=== PATIENT | male | born 1970 | race Caucasian/White ===

== ENCOUNTER 2021-03-25 11:35 | Outpatient (REF) | payer MEDICAID, SELFPAY | END 2021-03-25 11:36 | disposition home or self-care (01) | LOC: HO.HMGCLDS 11:35 | PROVIDERS: Visit Provider Internal Medicine | DX: Z20.822 Contact with and (suspected) exposure to COVID-19 (principal) | CPT/HCPCS: C9803; U0003; U0005 ==

== ENCOUNTER 2021-04-05 10:22 | Outpatient (REF) | payer MEDICAID, SELFPAY | END 2021-04-05 10:23 | disposition home or self-care (01) | LOC: HO.HMGCLDS 10:22 | PROVIDERS: Visit Provider Internal Medicine | DX: Z20.822 Contact with and (suspected) exposure to COVID-19 (principal) | CPT/HCPCS: C9803; U0003; U0005 ==

== ENCOUNTER 2022-07-07 10:13 | Emergency (ER) | payer OTHER, SELFPAY ==
--- NOTE | ~2022-07-07 | US_ITS ---
EXAMINATION: US SCROTUM CLINICAL INFORMATION: Right testicular pain. COMPARISON: None available. TECHNIQUE: A sonogram of the scrotum was performed assessing arriaga-scale appearance and color Doppler flow. Spectral Doppler analysis of the arterial and venous flow were performed in the testes bilaterally. FINDINGS: RIGHT: Right testicle measures 4.6 x 2.3 x 3.2 cm, volume 17.9 mL. There is a region of heterogeneous echotexture about the medial aspect of the right testicle. No hypervascularity is associated with this. 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 Recommend comparison with prior studies if they haven't been performed at another institution. If they have not been performed then follow-up scrotal ultrasound to ensure stability is recommended in 6 months. Calcification is present. Spectral Doppler analysis of the arterial and venous flow is normal in the right testis. Right epididymal head contains numerous cysts with the largest measuring 2.1 x 2.1 x 1.9 cm in size.. There is a small right hydrocele as well as a varicocele present. Right epididymal Doppler flow is normal. LEFT: Left testicle measures 4.4 x 2.7 x 2.8 cm, volume 17.2 mL. No focal testicular parenchymal lesions are visualized. Spectral Doppler analysis of the arterial and venous flow is normal in the left testis. Calcification present. Left epididymal head containing loops multiple cysts.. There is a minimal hydrocele present with a varicocele. Left epididymal Doppler flow is normal. In region of patient's right groin pain there is a lymph node with fatty hilum and no evidence of cortical thickening measuring 3.1 x 0.8 x 1.1 cm in size. US/US scrotum doppler IMPRESSION: Region of discomfort within the right groin corresponds to a prominent lymph node. Right testicular region of heterogeneous echotexture without increased vascular flow with patient giving history of previous right testicular rupture. Correlation with outside films is recommended. If no outside studies are available for comparison then a 6 month follow-up ultrasound is recommended.
[2022-07-07 10:29] VITALS: BP 129/58; PULSE 55; RESP 18; TEMP 36.4; O2SAT 99; BMI 26.6
[2022-07-07 11:09] LABS: Hematocrit 38.5 % (42.0-52.0); Hemoglobin 13.1 g/dl (14.0-18.0); Mean Corpuscular Hemoglobin 28.9 pg (27.0-33.0); Mean Platelet Volume 10.1 fL (9.4-12.4); Platelet Count 247 X10*3/uL (160-400); Red Blood Count 4.53 X10*6/uL (4.60-5.80); Red Cell Distribution Width 12.8 % (11.0-16.0); White Blood Count 7.5 X10*3/uL (4.8-10.8)
[2022-07-07 11:27] LABS: Anion Gap 12 (12-20); Blood Urea Nitrogen 9 mg/dL (9-16); Calcium 9.4 mg/dL (8.4-10.2); Carbon Dioxide 30 mmol/L (22-29); Chloride 105 mmol/L (96-108); Creatinine Clr Calc Pharmacy 105.5; Estimated Glomerular Filt Rate > 60; Glucose Random 111 mg/dL (60-115); Potassium 4.8 mmol/L (3.3-5.1); Sodium 142 mmol/L (135-145)
--- NOTE | 2022-07-07 16:13 | ED_ITS ---
HPI - Male Genitourinary General Chief complaint: Urogenital-Male Stated complaint: testicle issues Time Seen by Provider: 07/07/22 16:08 History of Present Illness HPI Narrative: Patient complains of right testicle swelling which has been going on for several weeks and has happen before in recent years, he did injure the testicle many years ago as a child The acute complaint today is he was exercising and felt a sharp pain in the right groin area and is concerned he may have developed a hernia and wants to be checked he denies any dysuria no other abdominal pain, he is not having any nausea or vomiting, no burning with urination no discharge, no fevers Related Data Allergies Allergy/AdvReac Type Severity Reaction Status Date / Time Unable to Assess Allergy Unverified 07/07/22 11:35 [facility] Past Medical History Source: nursing notes reviewed Social History Social History Advance Directives: No Advance Directives Information Provided: Yes Physical Exam Vital Signs: Vital Signs: Last Vital Signs Temp 97.8 F 07/07/22 16:52 Pulse 56 07/07/22 16:52 Resp 18 07/07/22 16:52 BP 133/81 07/07/22 16:52 Pulse Ox 98 07/07/22 16:52 O2 Del Method Room Air 07/07/22 16:52 BMI result Body Mass Index 26.6 General appearance is no acute distress The eyes no redness or discharge The pharynx is clear no redness swelling or exudates Neck is supple Respiratory no distress Abdomen soft nontender The groin exam there were no palpable masses, no hernia palpated, there was some right groin tenderness no rebound no guarding no other abdominal tenderness Genital exam there was of mobile small lump on the right testicle, otherwise no other abnormality palpated, genital exam otherwise normal no discharges no lesions Extremities full range of motion x4 Skin no rashes Course Course Course Narrative: patient who has a history of intermittent right testicular pain and swelling, who was exercising today and felt a sharp right groin pain that is been hurting all day comes in to be checked On exam I could not palpate any hernia Urinalysis was normal CBC was sent and his hematocrits 38.5 hemoglobin 13.1, no prior available, patient is not complaining of any acute weakness or dizziness, he does have ulcerative colitis and says he has not had any unusual bleeding For this he is advised to follow closely with his doctor for repeat blood count to see how it trending and he has said he will call his doctor's office and get this done within a week chemistry was normal Ultrasound showed no evidence of torsion, good blood flow in both testes, there was 1 right groin lymph node, there were multiple small cysts, hydrocele and varicocele, no other acute findings Patient did not want any pain medication and is referred to urologist for follow-up for his findings on ultrasound along with his right testicular discomfort, and with primary doctor for evaluation of his anemia Today's acute right groin pain may be the result of straining it during exercise but not certain Medical Decision Making Lab Data MDM Lab Attestation statement: I reviewed the patient's lab results. 07/07/22 11:00 07/07/22 11:00 Labs: Lab Results 07/07/22 07/07/22 07/07/22 Range/Units 11:00 11:00 16:18 WBC 7.5 (4.8-10.8) X10*3/uL RBC 4.53 L (4.60-5.80) X10*6/uL Hgb 13.1 L (14.0-18.0) g/dl Hct 38.5 L (42.0-52.0) % MCV 85.0 (80.0-98.0) fL MCH 28.9 (27.0-33.0) pg MCHC 34.0 (31.0-36.0) g/dl RDW 12.8 (11.0-16.0) % Plt Count 247 (160-400) X10*3/uL MPV 10.1 (9.4-12.4) fL Absolute Nucleated RBC 0.000 (0.0-0.012) X10*3/uL Nucleated RBC % (auto) 0.0 (0.0-0.2) /100WBC Sodium 142 (135-145) mmol/L Potassium 4.8 (3.3-5.1) mmol/L Chloride 105 (96-108) mmol/L Carbon Dioxide 30 H (22-29) mmol/L Anion Gap 12 (12-20) BUN 9 (9-16) mg/dL Creatinine 0.81 (0.5-1.4) mg/dL Estim Creat Clear Calc 105.5 Estimated GFR > 60 Random Glucose 111 (60-115) mg/dL Calcium 9.4 (8.4-10.2) mg/dL Urine Color Yellow Urine Appearance Clear Urine pH 7.0 (5.0-9.0) Ur Specific [place] 1.010 (1.005-1.025) Urine Protein Negative (Neg-Trace) mg/dL Urine Glucose (UA) Negative (Negative) mg/dL Urine Ketones Negative (Negative) mg/dL Urine Blood Negative (Negative) Urine Nitrite Negative (Negative) Ur Leukocyte Esterase Negative (Negative) Discharge Plan Discharge Clinical Impression: Right testicular pain, Varicocele, Hydrocele, Anemia Patient Disposition: Home, Self-Care Additional Instructions: ultrasound did not show any dangerous finding today, there was evidence of hydrocele, varicocele They recommend follow-up with urologist to compare today's finding to previous and you may need a repeat ultrasound in 6 months I did not feel any hernia on exam, no worrisome findings on exam There was a lymph node in the groin and this may need to be rechecked as well Your blood count was a little low and this could be from ulcerative colitis, but needs to be recheck so follow with primary doctor to make sure it is not dropping any further Return to the ER any time any worse condition or any concerns Referrals: Ramses Brenner MD [Physician] - ( right testicular pain and swelling, h ydrocele) Stand Alone Forms: Work/School Release Discharge Date/Time: 07/07/22 17:45
[2022-07-07 16:32] LABS: Appearance Urine Clear; Color Urine Yellow; Glucose Urine UA Negative (Negative); Leukocyte Esterase Urine Negative (Negative); Nitrite Urine Negative (Negative); Urine Blood Negative (Negative); Urine Ketones Negative (Negative); Urine Protein Negative (Neg-Trace)
[2022-07-07 16:52] VITALS: BP 133/81; PULSE 56; RESP 18; TEMP 36.6; O2SAT 98
--- NOTE | 2022-07-07 17:50 | PC.NURSE ---
PT WAS ASSESSED FOLLOWING LAB AND IMAGING RESULTED/ PT WAS THEN DISCHARGED
== END 2022-07-07 17:45 | disposition home or self-care (01) ==
PROVIDERS: Emergency Provider Student in an Organized Health Care Education/Training Program; PCP Physician Assistant
DX: N50.811 Right testicular pain (principal); I86.1 Scrotal varices; N43.3 Hydrocele, unspecified; D64.9 Anemia, unspecified; R10.2 Pelvic and perineal pain; Z79.899 Other long term (current) drug therapy
CPT/HCPCS: 36415; 76870; 80048; 81003; 85027; 93975; 99282; 99284

== ENCOUNTER 2024-05-13 09:40 | Emergency (ER) | payer SELFPAY ==
--- NOTE | ~2024-05-13 | XR_ITS ---
EXAMINATION: XR HAND 3 OR MORE VIEWS LEFT HISTORY: puncture injury COMPARISON: There are no prior studies available for comparison. FINDINGS: Three views of the left hand are submitted. Osseous mineralization is normal. There is no fracture or dislocation. 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 The remaining joint spaces are maintained. There is a small amount of mottled soft tissue gas between the 2nd and 3rd metacarpal heads. There is no radiopaque foreign body. XR/XR hand LT min 3V IMPRESSION: Small amount of mottled soft tissue gas between the 2nd and 3rd metacarpal heads. No evidence of fracture or radiopaque foreign body. Electronically signed by: Christ Camilo MD 05/13/2024 10:43 AM DAT [facility]
[2024-05-13 10:20] VITALS: BP 146/79; PULSE 47; RESP 20; TEMP 36.6; O2SAT 97; BMI 25.9
--- NOTE | 2024-05-13 10:20 | ED.GENADULT ---
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 Patient states that he was at work when he accidentally drilled into his left palm with a brand new 3/8ths sized drill bit. Patient denies any dizziness, lightheadedness, abdominal pain, nausea, vomiting, fever, chills, blurry vision, double vision, loss of vision, chest pain, difficulty breathing, shortness of breath, back pain, night sweats, pain with urination, increased urinary frequency, increased urinary urgency, blood in his urine or stool, syncope or a near syncopal episode, bowel incontinence, bladder incontinence, or any other complaints at this time. Patient states that he does not know when his last tetanus shot was. Location: left and upper extremity Relieving factors: none Exacerbating factors: none Associated symptoms: denies other symptoms Treatments prior to arrival: none Related Data Previous Rx's ?Medication ?Instructions ?Recorded amoxicillin 875 mg-potassium 1 tab PO BID 7 days #14 tabs 05/13/24 clavulanate 125 mg tablet doxycycline hyclate 100 mg tablet 100 mg PO BID 7 days #14 tabs 05/13/24 Allergies Allergy/AdvReac Type Severity Reaction Status Date / Time No Known Allergies Allergy Verified 05/13/24 10:23 Review of Systems Constitutional: Constitutional: Reports no additional constitutional complaints, Denies chills, Denies fever(s) and Denies night sweats Eyes: Eyes: Reports no additional eye complaints, Denies blurry vision, Denies change in vision, Denies diplopia, Denies eye discharge, Denies loss of vision and Denies eye pain ENT: Denies dizziness Cardiovascular: Cardiovascular: Reports no additional cardiovascular complaints, Denies chest pain, Denies lightheadedness, Denies Loss of Consciousness and Denies dyspnea Respiratory: Respiratory: Reports no additional respiratory complaints and Denies dyspnea Gastrointestinal: Gastrointestinal: Reports no additional gastrointestinal complaints, Denies abdominal pain, Denies melena, Denies hematochezia, Denies change in bowel habits and Denies change in stool character Genitourinary: Genitourinary: Reports no additional male genitourinary complaints, Denies hematuria, Denies oliguria, Denies difficulty urinating, Denies dysuria, Denies urinary frequency, Denies urinary hesitancy, Denies urinary incontinence and Denies urinary urgency Musculoskeletal: Musculoskeletal: Reports no additional musculoskeletal complaints, Denies numbness and Denies tingling Comments: left hand injury Neurologic: Denies dizziness, Denies loss of vision, Denies numbness and Denies tingling Psychiatric: Psychiatric: Reports no additional psychiatric complaints Endocrine: Endocrine: Reports no additional endocrine complaints Hematologic/Lymphatic: Hematologic/Lymphatic: Reports no additional hematologic/lymphatic complaints Allergic/Immunologic: Allergic/Immunologic: Reports no additional allergic/immunologic complaints PMFSH Past Medical History Attestation statement: The following information was validated with the patient. (all information validated with the patient's ) Source: old records reviewed, obtained from family (patient's provided additional history and confirmed the history provided by the patient.) and nursing notes reviewed Social History Social History Advance Directives: No Advance Directives Information Provided: Yes Do you have a plan to hurt others: No Plan Physical Exam ED Vital Signs: Vital Signs - 24 hr 05/13/24 10:20 05/13/24 16:35 Temperature 97.9 F 97.9 F Pulse Rate 47 L 47 L Respiratory Rate 20 20 Blood Pressure 146/79 H 146/79 H Pulse Oximetry 97 97 Oxygen Delivery Method Room Air Room Air BMI result Body Mass Index 25.9 Const General: cooperative, no acute distress, alert and awake Nutritional Appearance: well nourished Orientation/consciousness: patient oriented x3 Limitations: no limitations HENMT Head: Yes normal to inspection and Yes atraumatic Ears: hearing grossly normal bilaterally and external ears normal General nose exam: Normal external nose present, no nasal discharge noted and no epistaxis Face and sinus: Yes normal facial exam, No abrasion and No laceration Mouth: Normal oral and palatal mucosa present, no drooling and no muffled voice Eyes General: appearance normal, both eyes and all related structures Periorbital: periorbital findings normal Eyelids: Yes eyelids normal Conjunctivae: conjunctivae normal Pupils: Equal, round and reactive pupils present EOM: EOMs intact bilaterally Neck Neck: Yes normal visual inspection, Yes full ROM and Yes no lymphadenopathy Chest Chest palpation & inspection: normal inspection of the chest Resp Effort & Inspection: normal respiratory effort and able to speak in complete sentences GI Inspection: Yes normal to inspection Neuro General: patient oriented x3, moves all extremities and CN's II-XI intact bilaterally Cranial nerves: Yes Equal, round and reactive pupils present Cognition (Neuro): normal cognition Extrem Other: General: Yes full ROM and Yes capillary refill normal Psych Appearance: grossly normal Mental Status: mental status grossly normal Affect: normal affect Attitude: cooperative Thought process: Normal thought process present Thought content: Normal thought content present Insight: Good insight present (Psych) Course Course Course Narrative: RME performed by Nany Toledo PA-C. Patient is a 54 year old assigned male at presenting to the emergency department with a left hand injury. Patient states that he was at work when he accidentally drilled through his left palm with a 3/8ths drill. 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 Imaging ordered. Patient placed back in the waiting room pending room availability and results. Medications Administered Discontinued Medications Generic Name Dose Route Start Last Admin Trade Name Freq PRN Reason Stop Dose Admin Amoxicillin/Clavulanate Potassium 875 mg 05/13/24 16:26 05/13/24 16:32 Amoxicillin/Potassium Clav 875 Mg Tablet PO 05/13/24 16:27 875 mg ONCE ONE Administration Diphtheria/Tetanus/Acell Pertussis 0.5 ml 05/13/24 10:53 05/13/24 16:02 Diphth,Pertus(Acell),Tet Adult 0.5 Ml Syringe IM 05/13/24 10:54 0.5 ml .ONCE ONE Administration Doxycycline Monohydrate 100 mg 05/13/24 16:26 05/13/24 16:32 Doxycycline Monohydrate 100 Mg Capsule PO 05/13/24 16:27 100 mg ONCE ONE Administration Lidocaine HCl 5 ml 05/13/24 15:22 05/13/24 15:34 Lidocaine Hcl 1 % Mpf 5 Ml Vial SUBCUT 05/13/24 15:23 5 ml ONCE ONE Administration Procedures Laceration Laceration 1: Site: other (hand) Side (If applicable): left Size (cm): 2 Description: irregular Local Anesthetic: lidocaine 1% Amount of anesthesia used (mL): 5 Pre-repair: wound explored, irrigated extensively and deep structures intact Skin layer closed with: other (prolene) Size (cm): 6-0 Number of sutures: 2 Technique: simple, interrupted Medical Decision Making Medical Decision Making MDM Narrative: Patient is a 54 year old assigned male at with a history of IVDU (6 years sober), presenting to the emergency department today with a left hand injury. Patient's physical exam was as noted in the physical exam portion of this note. Patient did report decreased sensation to the radial aspect of the 3rd digit and ulnar aspect of the 2nd digit however - motor sensation and all pulses in the LUE were intact. Patient's left hand x-ray showed a small amount of mottled soft tissue gas between the 2nd and 3rd metacarpal heads. I spoke to the orthopedic team who recommended cleaning the wound, loosely closing it, starting the patient on ABX (ensuring to cover for MRSA) and having the patient follow up with their office on an outpatient basis. I explained my physical exam findings as well as all test results to the patient and the patient's . I answered all questions asked by the patient and the patient's . Patient's wound was thoroughly washed and the skin flaps remaining were loosely tacked down to the palm. Patient's PMS remained the same prior to and after repair. Patient's wound was wrapped with a non-stick gauze and web roll, without incident. Patient's PMS remained the same prior to and after dressing. Patient was brought up to date on his tetanus status and given his first dose of antibiotics. I stressed the importance of the patient taking his medication as directed (either prescribed or as the over the counter packaging recommends). I stressed the importance of the patient following up with his primary care provider, work connection, and an orthopedic provider. I stressed the importance of the patient returning to the emergency department immediately if his symptoms were to worsen or if he were to develop any dizziness, shortness of breath, difficulty breathing, chest pain, blurry vision, loss of vision, nausea, vomiting, abdominal pain, fever, chills, back pain, or any other complaints. Patient and the patient's verbalized agreement and understanding with this treatment plan and discharge. Differential Diagnosis Differential Diagnoses: The differential diagnosis associated with the presentation includes Left hand puncture wound Left hand laceration Admission/Observation Consideration of admission/observation: Escalation of care including admission/observation considered Patient would have been admitted to the hospital had his work up had any findings where hospital admission was appropriate and his clinical presentation warranted hospital admission. Consult Healthcare Provider Management of the patient was discussed with: Senior Cytogenetic Technologist (spoke with the orthopedic team as noted in the MDM Rationale portion of this note.) Independent Interpretation I performed an independent interpretation of an: Plain X-Ray Interpretation: My interpretation is in agreement with the radiologist's impression of this imaging study. EXAMINATION: XR HAND 3 OR MORE VIEWS LEFT HISTORY: puncture injury COMPARISON: There are no prior studies available for comparison. FINDINGS: Three views of the left hand are submitted. Osseous mineralization is normal. There is no fracture or dislocation. 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 The remaining joint spaces are maintained. There is a small amount of mottled soft tissue gas between the 2nd and 3rd metacarpal heads. There is no radiopaque foreign body. XR/XR hand LT min 3V IMPRESSION: Small amount of mottled soft tissue gas between the 2nd and 3rd metacarpal heads. No evidence of fracture or radiopaque foreign body. Electronically signed by: Christ Camilo MD 05/13/2024 10:43 AM EST Dictated By: Christ Camilo MD Signed By: Electronically signed by Christ Camilo MD 05/13/24 1043 Radiology Impression Discussion of test interpretation with radiology: I have reviewed the radiologist's reading. Independent Historian Clinical information obtained from an independent historian. History obtained from or confirmed by: Spouse (patient's provided additional history and confirmed the history provided by the patient.) Prescription Management I considered prescription management with: Antibiotic (patient prescribed doxycycline and Augmentin prophylactically given the mechanism / nature of the injury.) Discharge Plan Discharge Clinical Impression: Laceration, Puncture wound Patient Disposition: Home, Self-Care Instructions: Care For Your Stitches (DC), Laceration (DC) Additional Instructions: Do NOT get the affected area wet. Do NOT soak the affected area. Perform daily wound checks and dressing changes. Have your sutures (2) removed in 7-10 days. Take your antibiotics as prescribed. Given this was a work place injury - you should follow up with work connection. Follow up with your primary care provider and a hand specialist. Return to the emergency department immediately if your symptoms worsen or if you develop any dizziness, shortness of breath, difficulty breathing, chest pain, blurry vision, loss of vision, nausea, vomiting, abdominal pain, fever, chills, back pain, or any other complaints. Call [phone] to speak with our financial counselors for assistance with health insurance. Prescriptions: New doxycycline hyclate 100 mg tablet 100 mg PO BID 7 Days Qty: 14 0RF amoxicillin-pot clavulanate 875-125 mg tablet 1 tab PO BID 7 Days Qty: 14 0RF Referrals: [facility] [place] [facility] [Provider Group] (Call to establish and follow up with a primary care provider. IF you already have a primary care provider, please follow up with them.) [facility] [place] [facility] [Provider Group] (Call to establish and follow up with a primary care provider. IF you already have a primary care provider, please follow up with them.) [facility] [place] [facility] [Provider Group] (Call to establish and follow up with a primary care provider. IF you already have a primary care provider, please follow up with them.) [facility] [place] [facility] [Provider Group] (Call to establish and follow up with a primary care provider. IF you already have a primary care provider, please follow up with them.) [facility] [place] [Provider Group] (Call to establish and follow up with an orthopedic / hand specialist. ) [facility] [Provider Group] (Call to establish and follow up with work connection given this was a work place injury. ) Stand Alone Forms: Work/School Release Interventions: ED Discharge Assessment Last Done: 05/13/24 16:35 Discharge Date/Time: 05/13/24 16:35 Print Language: [place]
[2024-05-13] MEDS: Lidocaine HCl 1 % MPF 5 ML VIAL SUBCUT (15:34)
[2024-05-13] MEDS: Diphth,Pertus(ACell),Tet Adult 0.5 ML SYRINGE IM (16:02)
[2024-05-13] MEDS: Amoxicillin/Potassium Clav 875 MG TABLET PO (16:32)
[2024-05-13] MEDS: Doxycycline Monohydrate 100 MG CAPSULE PO (16:32)
[2024-05-13 16:35] VITALS: BP 146/79; PULSE 47; RESP 20; TEMP 36.6; O2SAT 97
== END 2024-05-13 16:35 | disposition home or self-care (01) ==
PROVIDERS: Emergency Provider Emergency Medicine
DX: S61.412A Laceration without foreign body of left hand, initial encounter (principal); W29.8XXA Contact with other powered hand tools and household machinery, initial encounter; Y93.9 Activity, unspecified; Y92.89 Other specified places as the place of occurrence of the external cause; Y99.0 Civilian activity done for income or pay; Z23 Encounter for immunization
CPT/HCPCS: 12001; 73130; 90471; 90715; 99282; 99284; J2003

== ENCOUNTER → 2024-05-13 10:24 | Outpatient (BNV) | payer OTHER, SELFPAY | PROVIDERS: Visit Provider Radiology Diagnostic Radiology | DX: M79.89 Other specified soft tissue disorders (principal) | CPT/HCPCS: 73130 ==

== ENCOUNTER 2024-05-15 14:14 | Outpatient (AMB) | payer OTHER, SELFPAY ==
[2024-05-15 15:00] VITALS: BMI 25.8
--- NOTE | 2024-05-15 15:00 | A.OFFVIS_ITS ---
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 States on 05/13/24 while at work he accidentally drilled into his left palm with a brand new 3/8ths sized drill bit trying to complete a jose order. 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 Seen at [facility] same day where xrays were taken. States he has no fractures but has a puncture wound on his palm at base of his middle finger. H ehas numbness on his index and middle finger. He received 3 sutures and referred to orthopedic. He is currently taking his ABX. 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 DOI: 05/13/24, at work. He was seen in the ED where his wound was washed out and sutured sutured. He complains of some pain in his hand. He also complains of numbness in his index & middle fingers since his injury. Normal sensation to the rest of his hand. This is a work related injury. 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 Review of Systems Const All systems reviewed & are unremarkable except as noted in HPI and below Physical Exam Vital Signs: BMI result Body Mass Index 25.8 Const General: cooperative, healthy appearing and no acute distress Orientation/consciousness: patient oriented x3 HEENT Head: Yes normocephalic and Yes atraumatic Eyes EOM: EOMs intact bilaterally Resp Effort & Inspection: normal respiratory effort and able to speak in complete sentences Cardio Jugular venous distension: no JVD Skin General skin exam: turgor normal Rashes: no rashes Neuro General: patient oriented x3 Extrem Other: Evaluation of Left Upper Extremity: The patient is alert, oriented, and in no acute distress Neuro: Median, Ulnar, Radial nerves motor and sensory intact and sensation is normal to the tips of all digits, except for numbness to the ulnar digital nerve of the index finger, and radial digits nerve of the middle finger. This is consistent with a 2nd common digital nerve injury. Vascular: Cap refill brisk ROM: Good FDP & FDS tendon function to all fingers With encouragement he could make a fist and extend all his digits Skin: Complex wound n between the 2nd and 3rd metacarpal heads in the palm of his hand. This is sutured General: No Erythema or evidence of infection. Radiographs: 3 views of the left hand were taken and viewed by me today in clinic. They show no fractures or dislocations Psych Appearance: grossly normal Affect: normal affect Attitude: cooperative Assessment & Plan Assessment & Plan (1) Puncture wound of left palm: Code(s): S61.432A - Puncture wound without foreign body of left hand, initial encounter Category: Medical (2) Numbness and tingling in left hand: Code(s): R20.0 - Anesthesia of skin; R20.2 - Paresthesia of skin Category: Medical Plan Assessment & Plan: 1. Left palm puncture wound From a drill, DOI: 05/13/24 This is a work-related injury 2. 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 Resulting in index & middle finger numbness distal to the 2nd webspace I educated him and his about this condition I discussed operative and non-operative treatment options I recommend wound care and activity modification, and he is in agreement He understands that he will likely not regain sensation in this 2nd digital nerve distribution. It is possible, but I think the chances are low. He will perform daily wound care and dressing changes at home I explained the signs and symptoms of infection, if the patient develops any new or worsening erythema, drainage, pain, or warmth they should contact the clinic or attend the ED. He will continue to take his Abx as instructed He should avoid any underwater activities at this time I discussed activity modifications, he is to lift nothing heavier than a cellphone for the next 4 weeks He will perform gentle finger ROM exercises at home He was given a note for work to remain out of work for the next 2 weeks. He will follow up next week with a PA for a wound check, and possible suture removal. No X-rays needed Scribed for Shelly Wagner MD by Dheeraj Bowman, medical records assistant, on 05/15/24 at 3:15 PM, EST. Coding Level of Care Code New Pt Level 4 (06228) Diagnoses Puncture wound of left palm S61.432A Numbness and tingling in left hand R20.0; R20.2
== END 2024-05-15 15:41 | disposition home or self-care (01) ==
PROVIDERS: Visit Provider Orthopaedic Surgery
DX: S61.432A Puncture wound without foreign body of left hand, initial encounter (principal); W29.8XXA Contact with other powered hand tools and household machinery, initial encounter; Z04.2 Encounter for examination and observation following work accident
CPT/HCPCS: 99204

== ENCOUNTER → 2024-05-15 14:14 | Outpatient (BNVA) | payer SELFPAY | PROVIDERS: Visit Provider Orthopaedic Surgery | DX: S61.432A Puncture wound without foreign body of left hand, initial encounter (principal); R20.0 Anesthesia of skin; R20.2 Paresthesia of skin | CPT/HCPCS: 99202 ==

== ENCOUNTER 2024-05-22 12:31 | Outpatient (AMB) | payer OTHER, SELFPAY ==
--- NOTE | 2024-05-22 12:36 | MHC.OFFVIS ---
Vital Signs 05/22/24 12:42 Height 5 ft 8 in Weight 170 lb BMI 25.8 Intake Visit Reasons: OV- L puncture DOI 05/13/24-Wound check/ROM check Intake Note: Surjit is a 54 year old right hand dominant male who presents today for a wound check s/p left palm puncture wound, caused by a drill while at work, DOI: 05/13/24. Patient reports that his wound is improving since his initial injury. He does mention having some drainage from wound. He has numbness in his 2nd and 3rd digit as well as pain at his 2nd MCP, stating it does not feel right. Allergies No Known Allergies Allergy (Verified 05/22/24 12:39) HPI HPI OV- L puncture DOI 05/13/24-Wound check/ROM check: Details: Mr. Dallas 54 yr old right hand dominant male presents today for his W/C injury to his left hand. States on 05/13/24 while at work he accidentally drilled into his left palm with a brand new 3/8ths sized drill bit trying to complete a jose order. 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 Seen at [facility] [place] [place] [facility] same day where xrays were taken. States he has no fractures but has a puncture wound on his palm at base of his middle finger. H ehas numbness on his index and middle finger. He received 3 sutures and referred to orthopedic. He is currently taking his ABX. He last saw Dr. Wganer on 05/15/24 where he was instructed to: Perform daily wound care and dressing changes at home He was explained the signs and symptoms of infection, if the patient develops any new or worsening erythema, drainage, pain, or warmth they should contact the clinic or attend the ED. He will continue to take his Abx as instructed He should avoid any underwater activities at this time They discussed activity modifications, he is to lift nothing heavier than a cellphone for the next 4 weeks He has been performing gentle finger ROM exercises at home He was given a note for work to remain out of work for the next 2 weeks. Patient reports that his last dose of antibiotics were yesterday. Of note, the patient reportedly removed his sutures at home earlier today. 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 Review of Systems Const All systems reviewed & are unremarkable except as noted in HPI and below Physical Exam Vital Signs: BMI result Body Mass Index 25.8 Const General: cooperative, healthy appearing and no acute distress Orientation/consciousness: patient oriented x3 HEENT Head: Yes normocephalic and Yes atraumatic Eyes EOM: EOMs intact bilaterally Resp Effort & Inspection: normal respiratory effort and able to speak in complete sentences Cardio Jugular venous distension: no JVD Skin General skin exam: turgor normal Rashes: no rashes Neuro General: patient oriented x3 Extrem Other: Neuro: Median, Ulnar, Radial nerves motor and sensory intact and sensation is normal to the tips of all digits, except for numbness to the ulnar digital nerve of the index finger, and radial digits nerve of the middle finger. This is consistent with a 2nd common digital nerve injury. Vascular: Cap refill brisk ROM: Good FDP & FDS tendon function to all fingers With encouragement he could make a fist and extend all his digits Skin: Complex wound in between the 2nd and 3rd metacarpal heads in the palm of his hand. Sutures are removed. There is no surrounding erythema or drainage. No signs of infection. There is some granulation tissue. Psych Appearance: grossly normal Affect: normal affect Attitude: cooperative Assessment & Plan Assessment & Plan (1) Puncture wound of left palm: Code(s): S61.432A - Puncture wound without foreign body of left hand, initial encounter Category: Medical Plan Mr. Dallas 54 yr old right hand dominant male presents today for his W/C injury to his left hand. States on 05/13/24 while at work he accidentally drilled into his left palm with a brand new 3/8ths sized drill bit trying to complete a jose order. 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 Seen at [facility] [place] [place] [facility] same day where xrays were taken. States he has no fractures but has a puncture wound on his palm at base of his middle finger. H ehas numbness on his index and middle finger. He received 3 sutures and referred to orthopedic. He is currently taking his ABX. He last saw Dr. Wagner on 05/15/24 where he was instructed to: Perform daily wound care and dressing changes at home He was explained the signs and symptoms of infection, if the patient develops any new or worsening erythema, drainage, pain, or warmth they should contact the clinic or attend the ED. He will continue to take his Abx as instructed He should avoid any underwater activities at this time They discussed activity modifications, he is to lift nothing heavier than a cellphone for the next 4 weeks He has been performing gentle finger ROM exercises at home He was given a note for work to remain out of work for the next 2 weeks. Patient reports that his last dose of antibiotics were yesterday. Of note, the patient reportedly removed his sutures at home earlier today. Around the puncture site there is some granulation tissue and the area is moist. He can continue hand washing with soap and water and pat the area dry. He should let the area open to air to allow for the wound to dry out. He will also continue performing hand range of motion exercises. I have extended his antibiotics for 1 week. He will follow up with our office in 1 week for a wound check, sooner if needed. Medications: Refilled amoxicillin-pot clavulanate 875-125 mg 1 tab PO BID 14 tabs 0RF 7 days Coding Level of Care Code Est Pt Level 3 (85685) Diagnoses Puncture wound of left palm S61.432A
[2024-05-22 12:42] VITALS: BMI 25.8
== END 2024-05-22 13:10 | disposition home or self-care (01) ==
PROVIDERS: Visit Provider Physician Assistant
DX: S61.432A Puncture wound without foreign body of left hand, initial encounter (principal)
CPT/HCPCS: 99213

== ENCOUNTER → 2024-05-22 12:31 | Outpatient (BNVA) | payer OTHER, SELFPAY | PROVIDERS: Visit Provider Physician Assistant | DX: S61.432A Puncture wound without foreign body of left hand, initial encounter (principal); W29.8XXA Contact with other powered hand tools and household machinery, initial encounter; Y93.9 Activity, unspecified; Y92.9 Unspecified place or not applicable; Y99.9 Unspecified external cause status | CPT/HCPCS: 99212 ==

== ENCOUNTER 2024-05-29 10:24 | Outpatient (AMB) | payer OTHER, SELFPAY ==
--- NOTE | 2024-05-29 11:07 | A.OFFVIS_ITS ---
Intake Visit Reasons: OV-L puncture DOI 05/13/24-Wound check/ROM check Intake Note: Surjit is a 54 year old right hand dominant male who presents today for a wound check s/p left palm puncture wound, caused by a drill while at work, DOI: 05/13/24. He was last seen with La Abraham on 05/22/24 where he was i nstructed to avoid any under water activities and no lifting anything heavier than 2 lbs. Refill of Abx sent to pharmacy. Of note, Patient removed his sutures at home. He remains out of work at this time. Allergies No Known Allergies Allergy (Verified 05/29/24 11:08) HPI HPI OV-L puncture DOI 05/13/24-Wound check/ROM check: Details: Surjit is a 54 year old right hand dominant male who presents today for a wound check s/p left palm puncture wound, caused by a drill while at work, DOI: 05/13/24. He was last seen with La Abraham on 05/22/24 where he was instructed to avoid any under water activities and no lifting anything heavier than 2 lbs. Refill of Abx sent to pharmacy. Of note, Patient removed his sutures at home. He remains out of work at this time. 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 Review of Systems Const All systems reviewed & are unremarkable except as noted in HPI and below Physical Exam Const General: cooperative, healthy appearing and no acute distress Orientation/consciousness: patient oriented x3 HEENT Head: Yes normocephalic and Yes atraumatic Eyes EOM: EOMs intact bilaterally Resp Effort & Inspection: normal respiratory effort and able to speak in complete sentences Cardio Jugular venous distension: no JVD Skin General skin exam: turgor normal Rashes: no rashes Neuro General: patient oriented x3 Extrem Other: Neuro: Median, Ulnar, Radial nerves motor and sensory intact and sensation is normal to the tips of all digits, except for numbness to the ulnar digital nerve of the index finger, and radial digits nerve of the middle finger. This is consistent with a 2nd common digital nerve injury. Vascular: Cap refill brisk ROM: Good FDP & FDS tendon function to all fingers With encouragement he could make a fist and extend all his digits Skin: Complex wound in between the 2nd and 3rd metacarpal heads in the palm of his hand. Sutures are removed. There is no surrounding erythema or drainage. No signs of infection. There is some granulation tissue. Psych Appearance: grossly normal Affect: normal affect Attitude: cooperative Assessment & Plan Assessment & Plan (1) Puncture wound of left palm: Code(s): S61.432A - Puncture wound without foreign body of left hand, initial encounter Category: Medical Plan 1. puncture wound without foreign body of the left hand Patient appears to be recovering well from his injury Patient is educated about the recovery course At this time, patient is informed that it was likely this he will not get full sensation of the ulnar side of the index finger in the radial side of the middle finger, as he likely injured the common digital nerve of the left hand and unfortunately this is unlikely to heal However, the patient was educated that he does appear to have avoided any major injury to any of the muscles or tendons of his left hand, as his range of motion is full and intact Patient expresses understanding of this Patient was educated he can continue to wash the wound site with soap and water in the sink of the shower, but should continue to avoid submerging Patient should continue with 2 lb weight limit in left hand Patient was amenable to this plan Patient will follow-up in 2 weeks for reassessment, sooner with any acute concerns Coding Level of Care Code Est Pt Level 3 (60106) Diagnoses Puncture wound of left palm S61.432A
== END 2024-05-29 11:28 | disposition home or self-care (01) ==
DX: S61.432A Puncture wound without foreign body of left hand, initial encounter (principal); Z04.2 Encounter for examination and observation following work accident
CPT/HCPCS: 99213

== ENCOUNTER → 2024-05-29 10:24 | Outpatient (BNVA) | payer OTHER, SELFPAY | DX: S61.432D Puncture wound without foreign body of left hand, subsequent encounter (principal) | CPT/HCPCS: 99212 ==

== ENCOUNTER 2024-06-12 13:27 | Outpatient (AMB) | payer OTHER, SELFPAY ==
--- NOTE | 2024-06-12 13:31 | MHC.OFFVIS ---
Intake Visit Reasons: OV-Left puncture DOI 05/13/24 Intake Note: Surjit is a 54 year old right hand dominant male who presents today for a follow up s/p left palm puncture wound, caused by a drill while at work, DOI: 05/13/24. Patient reports that he is improving slowly. The puncture wound is scabbing over and he reports no drainage. He has some resolving numbness in the pointer and middle fingers. He still has a lump on the proximal aspect of the pointer finger and pain in the mcp of the pointer finger as well Allergies No Known Allergies Allergy (Verified 05/29/24 11:08) HPI HPI OV-Left puncture DOI 05/13/24: Details: Surjit is a 54 year old right hand dominant male who presents today for a follow up s/p left palm puncture wound, caused by a drill while at work, DOI: 05/13/24. Patient reports that he is improving slowly. The puncture wound is scabbing over and he reports no drainage. He has some resolving numbness in the pointer and middle fingers. 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 Review of Systems Const All systems reviewed & are unremarkable except as noted in HPI and below Physical Exam Const General: cooperative, healthy appearing and no acute distress Orientation/consciousness: patient oriented x3 HEENT Head: Yes normocephalic and Yes atraumatic Eyes EOM: EOMs intact bilaterally Resp Effort & Inspection: normal respiratory effort and able to speak in complete sentences Cardio Jugular venous distension: no JVD Skin General skin exam: turgor normal Rashes: no rashes Neuro General: patient oriented x3 Extrem Other: Neuro: Median, Ulnar, Radial nerves motor and sensory intact and sensation is normal to the tips of all digits, except for numbness to the ulnar digital nerve of the index finger, and radial digits nerve of the middle finger. This is consistent with a 2nd common digital nerve injury. Vascular: Cap refill brisk ROM: Good FDP & FDS tendon function to all fingers With encouragement he could make a fist and extend all his digits Skin: Complex wound in between the 2nd and 3rd metacarpal heads in the palm of his hand. Sutures are removed. There is no surrounding erythema or drainage. No signs of infection. Wound if he has to be healing very well with overlying scab formation. Psych Appearance: grossly normal Affect: normal affect Attitude: cooperative Assessment & Plan Assessment & Plan (1) Puncture wound of left palm: Code(s): S61.432A - Puncture wound without foreign body of left hand, initial encounter Category: Medical (2) Numbness and tingling in left hand: Code(s): R20.0 - Anesthesia of skin; R20.2 - Paresthesia of skin Category: Medical Plan 1. puncture wound without foreign body of the left hand Patient appears to be recovering well from his injury Patient is educated about the recovery course At this time, patient is informed that it was likely this he will not get full sensation of the ulnar side of the index finger in the radial side of the middle finger, as he likely injured the common digital nerve of the left hand and unfortunately this is unlikely to heal However, the patient was educated that he does appear to have avoided any major injury to any of the muscles or tendons of his left hand, as his range of motion is full and intact Patient expresses understanding of this Patient was educated he can continue to wash the wound site with soap and water in the sink of the shower, but should continue to avoid submerging Patient should continue with 2 lb weight limit in left hand Patient was also referred to occupational therapy for desensitization and range of motion of the left hand Patient was amenable to this plan Patient will follow-up in 3-4 weeks for reassessment, sooner with any acute concerns Orders: Orders OT Evaluation and Treatment Today R20.0 - Anesthesia of skin, R20.2 - Paresthesia of skin, S61.432A - Puncture wound without foreign body of left hand, initial encounter Coding Level of Care Code Est Pt Level 3 (23204) Diagnoses Puncture wound of left palm S61.432A Numbness and tingling in left hand R20.0; R20.2
--- OUTSIDE RECORDS SUMMARY | 2024-06-12 15:55 | XMS_ITS | Clinical Summary ---
Author Organization [facility] Address [address] [place] [id number] Care Team Providers Care Website Developer Name Role Phone Unavailable Primary Care Provider Unavailabl e Social History Tobacco Use Types Packs/Day Years Used Date Smoking Tobacco: Never Assessed Sex and Gender Information Value Date Recorded Sex Assigned at Not on file Gender Identity Not on file Sexual Orientation Not on file Plan of Treatment Upcoming Encounters Date Type Department Care Team (Late st Contact Info) Description 06/19/2024 10:15 AM EDT Office Visit [facility] [address] [place] [id number] Narendra Gtz MD [address] [facility] [address] [place] [id number] Health Maintenance Due Date Last Done Comments Hepatitis C Virus Screening 1972 HIV Screening 1985 DTaP/Tdap/Td Vaccines (1 - Tdap) 1991 Hepatitis B Vaccines (1 of 3 - 19+ 3-dose series) 04/05 Colonoscopy 2017 Pneumococcal Vaccines 50+ (1 of 1 - PCV) 2022 Zoster (Shingles) Vaccine (1 of 2) 2022 Influenza Vaccine 11/02/2023 COVID-19 Vaccine (1 - 2023-25 season) 2023
== END 2024-06-12 13:49 | disposition home or self-care (01) ==
LOC: HO.HOS 13:28
DX: S61.432A Puncture wound without foreign body of left hand, initial encounter (principal); R20.0 Anesthesia of skin; R20.2 Paresthesia of skin
CPT/HCPCS: 99213

== ENCOUNTER → 2024-06-12 13:27 | Outpatient (BNVA) | payer OTHER, SELFPAY | DX: S61.432D Puncture wound without foreign body of left hand, subsequent encounter (principal); R20.0 Anesthesia of skin; R20.2 Paresthesia of skin | CPT/HCPCS: 99212 ==

== ENCOUNTER 2024-07-10 12:51 | Outpatient (AMB) | payer OTHER, SELFPAY ==
--- NOTE | 2024-07-10 12:59 | A.OFFVIS_ITS ---
Vital Signs 07/10/24 13:00 Height 5 ft 8 in Weight 170 lb BMI 25.8 Intake Visit Reasons: OV-Left hand puncture DOI 05/13/24 follow up Intake Note: Surjit is a 54 year old right hand dominant male who presents today for a follow up s/p left palm puncture wound, caused by a drill while at work, DOI: 05/13/24. On 06/12/24 he was referred to occupational therapy for d esensitization and range of motion of the left hand. Patient rpeorts that he continues to have pain at the base of the left pointer finger. He has continued numbness of the middle finger which he feels is getting worse while the numbness in the pointer finger is getting better. He is working with OT on desensitization of the palm. His job did require that he get a second opinion, he did and they state that they would have operated on him at the 2 week abe but otherwise their treatment plan would remain the same as ours for non operative management Allergies No Known Allergies Allergy (Verified 07/10/24 13:07) HPI HPI OV-Left hand puncture DOI 05/13/24 follow up: Details: Surjit is a 54 year old right hand dominant male who presents today for a follow up s/p left palm puncture wound, caused by a drill while at work, DOI: 05/13/24. On 06/12/24 he was referred to occupational therapy for desensitization and range of motion of the left hand. Patient rpeorts that he continues to have pain at the base of the left pointer finger. He has continued numbness of the middle finger which he feels is getting worse while the numbness in the pointer finger is getting better. He is working with OT on desensitization of the palm. 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 Review of Systems Const All systems reviewed & are unremarkable except as noted in HPI and below Physical Exam Vital Signs: BMI result Body Mass Index 25.8 Const General: cooperative, healthy appearing and no acute distress Orientation/consciousness: patient oriented x3 HEENT Head: Yes normocephalic and Yes atraumatic Eyes EOM: EOMs intact bilaterally Resp Effort & Inspection: normal respiratory effort and able to speak in complete sentences Cardio Jugular venous distension: no JVD Skin General skin exam: turgor normal Rashes: no rashes Neuro General: patient oriented x3 Extrem Other: Neuro: Median, Ulnar, Radial nerves motor and sensory intact and sensation is no rmal to the tips of all digits, except for numbness to the ulnar digital nerve of the index finger, and radial digits nerve of the middle finger. Patient does report improved sensation in the ulnar aspect of the index finger compared to previous visit. This is consistent with a 2nd common digital nerve injury. Vascular: Cap refill brisk ROM: Good FDP & FDS tendon function to all fingers With encouragement he could make a fist and extend all his digits Skin: Complex wound in between the 2nd and 3rd metacarpal heads in the palm of his hand. Sutures are removed. There is no surrounding erythema or drainage. No signs of infection. Wound well healed Psych Appearance: grossly normal Affect: normal affect Attitude: cooperative Assessment & Plan Assessment & Plan (1) Puncture wound of left palm: Code(s): S61.432A - Puncture wound without foreign body of left hand, initial encounter Category: Medical (2) Numbness and tingling in left hand: Code(s): R20.0 - Anesthesia of skin; R20.2 - Paresthesia of skin Category: Medical Plan 1. puncture wound without foreign body of the left hand Patient appears to be recovering well from his injury Patient is educated about the recovery course At this time, patient is informed that it was likely this he will not get full sensation of the ulnar side of the index finger in the radial side of the middle finger, as he likely injured the common digital nerve of the left hand and unfortunately this is unlikely to heal However, the patient was educated that he does appear to have avoided any major injury to any of the muscles or tendons of his left hand, as his range of motion is full and intact Patient expresses understanding of this Patient was educated he can continue to wash the wound site with soap and water in the sink of the shower, can submerge at this time Patient should increased to 5 lb weight limit over the next 2 weeks, 10-15 lb of the following 2 weeks, and then gradual return back to normal activity Patient was also referred to occupational therapy for desensitization and range of motion of the left hand Patient was amenable to this plan Patient will follow-up as needed with any acute concerns Coding Level of Care Code Est Pt Level 3 (44560) Diagnoses Puncture wound of left palm S61.432A Numbness and tingling in left hand R20.0; R20.2
[2024-07-10 13:00] VITALS: BMI 25.8
--- OUTSIDE RECORDS SUMMARY | 2024-07-10 14:53 | XMS_ITS | Clinical Summary ---
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 Name Role Phone Pcp, No Primary Care Provider Unavailabl e Encounters Date Type Department Care Team Description 06/19/2024 10:15 AM EDT Office Visit [facility] [address] [place] [address] Narendra Gtz MD Laceration of left hand without foreign body, initial encounter (Primary Dx) from Last 3 Months Social History Tobacco Use Types Packs/Day Years Used Date Smoking Tobacco: Never Assessed Sex and Gender Information Value Date Recorded Sex Assigned at Not on file Gender Identity Not on file Sexual Orientation Not on file Plan of Treatment Health Maintenance Due Date Last Done Comments Hepatitis C Virus Screening 1972 HIV Screening 1985 DTaP/Tdap/Td Vaccines (1 - Tdap) 1991 Hepatitis B Vaccines (1 of 3 - 19+ 3-dose series) 04/05 Colonoscopy 2017 Pneumococcal Vaccines 50+ (1 of 1 - PCV) 2022 Zoster (Shingles) Vaccine (1 of 2) 2022 Influenza Vaccine 11/02/2023 COVID-19 Vaccine ( - 2023- season) 2023 Care Teams Gas Plant Repairer Relationship Specialty Start Date End Date Pcp, No PCP - General General Medicine 06/19/24
--- OUTSIDE RECORDS SUMMARY | 2024-07-10 14:53 | XMS_ITS ---
Author Name [facility] Organization Unknown Problems Problem Status Onset Date Problem Type Date of Resoluti on Source Laceration of left hand without foreign body, initial encounter active EncounterDiagnosisAct H HCCT Encounters Encounter Type Encounter Reason Primary Diagnosis Location Date Ambulatory Laceration without foreign body of left hand, initial encounter Laceration without foreign body of left hand, initial encounter [facility] 06/19/2024 Care Team Organization Name Specialty Phone Email Start Date End Da te [facility] PCP Cosmetic Consultant 06/20/2024 [facility] NO PCP Primary Care 06/19/2024 [facility] 06/05/2024
== END 2024-07-10 13:21 | disposition home or self-care (01) ==
LOC: HO.HOS 12:52
DX: S61.432A Puncture wound without foreign body of left hand, initial encounter (principal); R20.0 Anesthesia of skin; R20.2 Paresthesia of skin
CPT/HCPCS: 99213

== ENCOUNTER → 2024-07-10 12:51 | Outpatient (BNVA) | payer OTHER, SELFPAY | DX: S61.432D Puncture wound without foreign body of left hand, subsequent encounter (principal); R20.0 Anesthesia of skin; R20.2 Paresthesia of skin | CPT/HCPCS: 99212 ==

== ENCOUNTER 2025-02-12 14:45 | Outpatient (AMB) | payer OTHER, SELFPAY ==
[2025-02-12 15:05] VITALS: BMI 25.8
--- NOTE | 2025-02-12 15:05 | A.OFFVIS_ITS ---
Vital Signs 02/12/25 15:05 Height 5 ft 8 in Weight 170 lb BMI 25.8 Intake Visit Reasons: OV-Left hand puncture DOI 05/13/24/MF IF numbness Intake Note: Surjit is a 54 year old right hand dominant male who presents today for a follow up status post Left Palm Puncture Wound caused by a drill while at work, DOI: 05/13/24. They were last seen on 07/10/24. At that time patient was advised to gradually increase his weight limit and to gradually increase activity. Patient was cleared to return to work on 09/25/24. Today, patient complains of left middle finger numbness and achy pain on the radial aspect. Patient also states he feels a bump at his puncture site. He also complains of stiffness. He denies any new injuries to the left hand. Allergies No Known Allergies Allergy (Verified 02/12/25 15:10) HPI HPI OV-Left hand puncture DOI 05/13/24/MF IF numbness: Details: Surjit is a 54 year old right hand dominant male who presents today for a follow up status post Left Palm Puncture Wound caused by a drill while at work, DOI: 05/13/24. They were last seen on 07/10/24. At that time patient was advised to gradually increase his weight limit and to gradually increase activity. Patient was cleared to return to work on 09/25/24. Today, patient complains of left middle finger numbness and achy pain on the radial aspect. Patient also states he feels a bump at his puncture site. He also complains of stiffness. He denies any new injuries to the left hand. Patient states that he mostly booked this visit to confirm that numbness and tingling will likely not resolve. 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 Review of Systems Const All systems reviewed & are unremarkable except as noted in HPI and below Physical Exam Vital Signs: BMI result Body Mass Index 25.8 Const General: cooperative, healthy appearing and no acute distress Orientation/consciousness: patient oriented x3 HEENT Head: Yes normocephalic and Yes atraumatic Eyes EOM: EOMs intact bilaterally Resp Effort & Inspection: normal respiratory effort and able to speak in complete sentences Cardio Jugular venous distension: no JVD Skin General skin exam: turgor normal Rashes: no rashes Neuro General: patient oriented x3 Extrem Other: Neuro: Median, Ulnar, Radial nerves motor and sensory intact and sensation is normal to the tips of all digits, except for numbness to the ulnar digital nerve of the index finger, and radial digits nerve of the middle finger. Patient does report improved sensation in the ulnar aspect of the index finger compared to previous visit. This is consistent with a 2nd common digital nerve injury. Vascular: Cap refill brisk ROM: Good FDP & FDS tendon function to all fingers With encouragement he could make a fist and extend all his digits Skin: Wound between the 2nd and 3rd metacarpal heads of the left hand has healed completely Psych Appearance: grossly normal Affect: normal affect Attitude: cooperative Assessment & Plan Assessment & Plan (1) Puncture wound of left palm: Code(s): S61.432A - Puncture wound without foreign body of left hand, initial encounter Category: Medical (2) Numbness and tingling in left hand: Code(s): R20.0 - Anesthesia of skin; R20.2 - Paresthesia of skin Category: Medical Plan 1. puncture wound without foreign body of the left hand Patient appears to be recovering well from his injury Patient is educated about the recovery course At this time, patient is informed that it was likely this he will not get full sensation of the ulnar side of the index finger in the radial side of the middle finger, as he likely injured the common digital nerve of the left hand and unfortunately this is unlikely to heal However, the patient was educated that he does appear to have avoided any major injury to any of the muscles or tendons of his left hand, as his range of motion is full and intact Patient expresses understanding of this No active restrictions necessary at this time Patient is educated that at this point, it is highly unlikely that we would be able to perform any surgical intervention that would return sensation to the left middle finger Patient understands this Follow-up as needed Coding Level of Care Code Est Pt Level 3 (74901) Diagnoses Puncture wound of left palm S61.432A Numbness and tingling in left hand R20.0; R20.2
--- OUTSIDE RECORDS SUMMARY | 2025-02-12 18:12 | XMS_ITS | Clinical Summary ---
Author Organization [facility] Address [address] [place] [address] Care Team Providers Care Operations Label Clerk Name Role Phone Pcp, No Primary Care Provider Unavailabl e Social History Tobacco Use Types Packs/Day Years Used Date Smoking Tobacco: Never Assessed Sex and Gender Information Value Date Recorded Sex Assigned at Not on file Legal Sex Male 9:47 AM EST Gender Identity Not on file Sexual Orientation [...] Vaccine (1 of 2) 2022 Influenza Vaccine 11/01/2024 COVID-19 Vaccine (1 - 2023- season) 2024 RSV Vaccine 50 years and old er and Patients (1 - 1-dose 75+ series) 2047 Insurance [facility] [employer] Care Teams Operations Label Clerk Relationship Specialty Start Date End Date Pcp, No PCP - General General Medicine 06/19/24
== END 2025-02-12 15:37 | disposition home or self-care (01) ==
LOC: HO.HOS 14:45
DX: S61.432A Puncture wound without foreign body of left hand, initial encounter (principal); R20.0 Anesthesia of skin; R20.2 Paresthesia of skin
CPT/HCPCS: 99213

== ENCOUNTER → 2025-02-12 14:45 | Outpatient (BNVA) | payer OTHER, SELFPAY | DX: R20.0 Anesthesia of skin (principal); R20.2 Paresthesia of skin; S61.432D Puncture wound without foreign body of left hand, subsequent encounter | CPT/HCPCS: 99212 ==